=== PATIENT | male | born 1965 | race Caucasian/White ===

== ENCOUNTER 2017-12-08 19:25 | Emergency (ER) | payer BC ==
--- NOTE | 2017-12-08 19:44 | EDM.PDOC ---
ED HPI GENERAL MEDICAL PROBLEM - General Chief Complaint: Upper Extremity Injury/Pain Stated Complaint: FALL/PAIN LT ARM Time Seen by Provider: 12/08/17 19:32 - History of Present Illness INITIAL COMMENTS - FREE TEXT/NARRATIVE: HISTORY AND PHYSICAL: History of present illness: The patient is a 52-year-old male who presents after falling off of the uterosacral with an outstretched left arm behind him and complains of pain circumferentially at the left elbow. He did not hit his head pass out or black out and has no head neck or back pain and no proximal shoulder or clavicle or distal hand pain. He says he has little discomfort at the left wrist but is mostly localized to the lower surface of the elbow. She has a history of a radial head fracture on the right and he says this feels the same. Neurosensory distally is intact and denies any other injuries or complaints and had no systemic issues prior to these events. He did not take any medication prior to coming here Review of systems: As per history of present illness and below otherwise all systems reviewed and negative. Past medical history: As per history of present illness and as reviewed below otherwise noncontributory. Surgical history: As per history of present illness and as reviewed below otherwise noncontributory. Social history: No reported history of drug or alcohol abuse. Family history: As per history of present illness and as reviewed below otherwise noncontributory. Physical exam: General: Well-developed well-nourished man who is nontoxic and vital signs are noted by me HEENT: Atraumatic, normocephalic, no midline step-offs tenderness defects of the cervical spine, negative for conjunctival pallor or scleral icterus, mucous membranes moist, throat clear, neck supple, nontender, trachea midline. Lungs: Clear to auscultation, breath sounds equal bilaterally, chest nontender. Heart: S1S2, regular and rhythm no overt murmurs Abdomen: Soft, nondistended, nontender. NABS Pelvis: Deferred Genitourinary: Deferred. Rectal: Deferred. Extremities: Atraumatic with full range of motion of all extremities with the exception of the left elbow but the patient holds the forearm in pronation and will not rotate and there is soft tissue swelling at the lateral aspect of the volar elbow. There is no discrete olecranon tenderness defects or deformities and distally he has some mild wrist tenderness without defects deformities or soft tissue swelling. Neurovascular distally is intact as is the hand and the digits. The proximal humerus shoulder and clavicle are nontender without defects or deformities., negative for cords or calf pain. Neurovascular unremarkable. Neuro: Awake, alert, oriented. Cranial nerves II through XII unremarkable. Cerebellum unremarkable. Motor and sensory unremarkable throughout. Exam nonfocal. Neck: There are no midline step-offs tenderness defects of the thoracic or lumbar spine and no posterior shoulder or rib tenderness Diagnostics: X-ray of elbow and forearm Therapeutics: Patient declined pain meds at this time on my initial evaluation, ice pack, After learning the x-ray results the patient would like a dose of Toradol. Long arm post mold and sling were placed by nursing. Patient also asked for a disc of his x-rays which we will give him 2026: Case was discussed with Dr. Nelda Oshea who will see him in the clinic in the next 1-2 days Impression: Radial head fracture left Definitive disposition and diagnosis as appropriate pending reevaluation and review of above. left elbow Pain Score (Numeric/FACES): 10 - Related Data Allergies Allergy/AdvReac Type Severity Reaction Status Date / Time No Known Allergies Allergy Verified 12/08/17 19:35 Home Meds: Home Meds . [No Known Home Meds] 12/08/17 [History] Past Medical History - Past Surgical History Musculoskeletal Surgical History: Reports: Other (See Below) Other Musculoskeletal Surgeries/Procedures:: elbow sx;right ankle, both feet sx Social & Family History - Family History Family Medical History: Noncontributory - Tobacco Use Smoking Status *Q: Never Smoker - Recreational Drug Use Recreational Drug Use: No Review of Systems - Review of Systems Review Of Systems: ROS reveals no pertinent complaints other than HPI. ED EXAM, GENERAL - Physical Exam Exam: See Below (see Dictation) Course - Vital Signs Last Recorded V/S: Last Vital Signs Temp 36.6 C 12/08/17 19:25 Pulse 97 12/08/17 19:25 Resp 18 12/08/17 19:25 BP 140/95 H 12/08/17 19:25 Pulse Ox 98 12/08/17 19:25 - Orders/Labs/Meds Orders: Active Orders 24 hr Category Date Time Status Forearm 2V Lt [CR] Stat Exams 12/08/17 19:40 Taken Ketorolac [Toradol] Med 12/08/17 20:31 Once 60 mg IM ONETIME ONE DME for Discharge [COMM] Stat Oth 12/08/17 20:28 Ordered Departure - Departure Time of Disposition: 20:32 Disposition: Home, Self-Care 01 Condition: Good Clinical Impression: Fracture of radial head, left, closed Qualifiers: Encounter type: initial encounter Fracture alignment: nondisplaced Qualified Code(s): S52.125A - Nondisplaced fracture of head of left radius, initial encounter for closed fracture - Discharge Information Referrals: PCP,None [Primary Care Provider] - Forms: ED Department Discharge Additional Instructions: The following information is given to patients seen in the emergency department who are being discharged to home. This information is to outline your options for follow-up care. We provide all patients seen in our emergency department with a follow-up referral. The need for follow-up, as well as the timing and circumstances, are variable depending upon the specifics of your emergency department visit. If you don't have a primary care physician on staff, we will provide you with a referral. We always advise you to contact your personal physician following an emergency department visit to inform them of the circumstance of the visit and for follow-up with them and/or the need for any referrals to a consulting specialist. The emergency department will also refer you to a specialist when appropriate. This referral assures that you have the opportunity for followup care with a specialist. All of these measure are taken in an effort to provide you with optimal care, which includes your followup. Under all circumstances we always encourage you to contact your private physician who remains a resource for coordinating your care. When calling for followup care, please make the office aware that this follow-up is from your recent emergency room visit. If for any reason you are refused follow-up, please contact the [facility] emergency department at and ask to speak to the emergency department charge nurse. Specialty Care--Orthopedic clinic Professional Building [address] [place] [id number] Please leave splint that was placed in the ER on into your followed up in the clinic and ice and elevate as much as possible. Use [id number] ibuprofen/ Aleve for pain and inflammation and at the stronger pain medications you have been prescribed, [place], from [employer] as needed. If you take the [place] please do not drive a car. Please call the clinic tomorrow morning and schedule a follow-up appointment with Dr. Oshea and return to ER as needed and as discussed - My Orders Last 24 Hours: My Active Orders 12/08/17 19:40 Forearm 2V Lt [CR] Stat 12/08/17 20:28 DME for Discharge [COMM] Stat 12/08/17 20:31 Ketorolac [Toradol] 60 mg IM ONETIME ONE - Assessment/Plan Last 24 Hours: My Active Orders 12/08/17 19:40 Forearm 2V Lt [CR] Stat 12/08/17 20:28 DME for Discharge [COMM] Stat 12/08/17 20:31 Ketorolac [Toradol] 60 mg IM ONETIME ONE
[2017-12-08] MEDS ORDERED: Ketorolac 60 MG/2 ML SDV IM ONE (20:31)
--- NOTE | 2017-12-09 13:01 | CR ---
EXAM DATE: 12/08/17 PATIENT'S AGE: 52 Patient: SARAH GIBSON Facility: [facility] Site . Site : [id number] Study: XRay-Extremity Left forearm [id number]/13/2018 7:59:50 PM Ordering Physician: Mandy Spivey Final Report: 3 VIEWS left forearm including elbow INDICATION: Injury. IMPRESSION: Slight flattening and deformity of the head of the radius suggesting a nondisplaced impacted fracture. Possible elbow effusion with displacement of anterior posterior fat pads. Grossly anatomic alignment is present. An ulnar styloid fracture is present at the carpus. The fracture fragment appears corticated and this could be a previous injury correlate with history. Dictated by Oniel Morrison MD @ Dec 08 2017 8:23PM Signed by: Oniel Morrison MD @12/08/2017 8:23:35 PM (Electronic Signature) Report Signed by Proxy. JAC
== END 2017-12-08 21:00 | disposition home or self-care (01) ==
LOC: MW.ED 19:25
DX: S52.125A Nondisplaced fracture of head of left radius, initial encounter for closed fracture (principal); W19.XXXA Unspecified fall, initial encounter
CPT/HCPCS: 73090; 96372; 99283; J1885